=== PATIENT | female | born 1995 | race Caucasian/White ===

== ENCOUNTER 2020-12-10 09:48 | Inpatient (IN) | payer BC ==
[~2020-12-10] VITALS: Ht 149.9 cm; Wt 82.7 kg
[~2020-12-10 09:48] MED LIST: IBUP-1222 PO; OXYC1TAB12 PO
[2020-12-10] MEDS ORDERED: LACTATED RINGERS 1,000 ML IVBOLUS ONE (10:00)
[2020-12-10] MEDS ORDERED: METOCLOPRAMIDE 5 MG/ML, 2ML IV ONE (10:00)
[2020-12-10] MEDS ORDERED: SODIUM CITRATE/CITRIC ACID 30 ML UDC PO ONE (10:00)
[2020-12-10 10:25] VITALS: BP 112/78
[2020-12-10] MEDS ORDERED: PREN1TAB60 PO (10:25)
[2020-12-10] MEDS ORDERED: PLEASE ENTER HEIGHT AND WEIGHT MC SCH (10:30)
[2020-12-10 10:38] LABS: BASOPHILS % (AUTO) 0 % (0-1); EOSINOPHILS % (AUTO) 1 % (1-7); LYMPHOCYTES % (AUTO) 20 % (22-44); MEAN PLATELET VOLUME 9.6 fL (7.4-10.4); MONOCYTES % (AUTO) 7 % (2-9); NEUTROPHILS % (AUTO) 71 % (42-75); PLATELET COUNT 211 x10^3/uL (130-400); RED BLOOD COUNT 3.81 x10^6/uL (3.82-5.3); RED CELL DISTRIBUTION WIDTH 13.4 % (9.6-15.2)
[2020-12-10] MEDS ORDERED: SODIUM CITRATE/CITRIC ACID 15 ML UDC ONE (10:38)
[2020-12-10] MEDS ORDERED: NEWBORN KIT ONE (10:59)
[2020-12-10] MEDS ORDERED: CEFAZOLIN 1,000 MG ONE (11:16)
[2020-12-10] MEDS ORDERED: ONDANSETRON 2MG/ML, 2ML ONE (11:16)
[2020-12-10] MEDS ORDERED: OXYTOCIN 10 UNITS/ML, 1ML ONE (11:16)
[2020-12-10] MEDS ORDERED: FENTANYL PF 100 MCG/2ML ONE (11:16)
[2020-12-10] MEDS ORDERED: HYDROmorphone 2 MG/ML, 1ML ONE (11:16)
[2020-12-10] MEDS ORDERED: PHENYLEPHRINE 10 MG/ML ONE (12:32)
[2020-12-10] MEDS ORDERED: KETOROLAC 30 MG/1 ML ONE (12:41)
[2020-12-10] MEDS: LACTATED RINGERS 1,000 ML IV SCH ×4 (13:00→23:00)
[2020-12-10] MEDS ORDERED: MORPHINE SULFATE 4 MG/ML, 1ML IVPush PRN (13:00)
[2020-12-10] MEDS ORDERED: MISOPROSTOL 200 MCG TABLET PR PRN (13:00)
[2020-12-10] MEDS: KETOROLAC 30 MG/1 ML IV SCH ×2 (13:00→19:02)
[2020-12-10] MEDS ORDERED: ONDANSETRON 2MG/ML, 2ML IV PRN (13:00)
[2020-12-10] MEDS ORDERED: OXYcodone/APAP 5/325MG TABLET PO PRN (13:00)
[2020-12-10] MEDS: OXYTOCIN 30U/ 0.9% NaCL 500ML 500 ML IV SCH ×2 (13:30→23:00)
[2020-12-10] MEDS ORDERED: OXYcodone 5 MG/5 ML ORAL.SOL UDC ONE (14:13)
[2020-12-10] MEDS ORDERED: OXYcodone 5 MG/5 ML ORAL.SOL UDC PO PRN (14:30)
[2020-12-10 15:00] VITALS: BP 117/78
[2020-12-10] MEDS: DOCUSATE 100 MG CAPSULE PO PRN (19:02)
[2020-12-10] MEDS: OXYcodone IR 5MG TABLET PO PRN (19:03)
[2020-12-10 20:50] VITALS: BP 114/70
[2020-12-10 21:03] LABS: BASOPHILS % (AUTO) 1 % (0-1); EOSINOPHILS % (AUTO) 0 % (1-7); LYMPHOCYTES % (AUTO) 20 % (22-44); MEAN CORPUSCULAR HEMOGLOBIN 30.6 pg (27.0-34.8); MEAN CORPUSCULAR HGB CONC 34.5 g/dL (32.4-35.8); MEAN PLATELET VOLUME 9.5 fL (7.4-10.4); MONOCYTES % (AUTO) 6 % (2-9); NEUTROPHILS % (AUTO) 73 % (42-75); PLATELET COUNT 203 x10^3/uL (130-400); RED BLOOD COUNT 3.85 x10^6/uL (3.82-5.3); RED CELL DISTRIBUTION WIDTH 13.2 % (9.6-15.2)
[2020-12-10] MEDS: ACETAMINOPHEN 325 MG TABLET PO PRN (21:27)
[2020-12-11] VITALS: BP 102/70
[2020-12-11] MEDS: SIMETHICONE 80 MG CHEW TAB PO PRN ×3 (00:39→14:47)
[2020-12-11] MEDS: KETOROLAC 30 MG/1 ML IV SCH ×4 (00:40→18:49)
[2020-12-11] MEDS: ACETAMINOPHEN 325 MG TABLET PO PRN ×6 (02:10→23:02)
[2020-12-11] MEDS: OXYcodone IR 5MG TABLET PO PRN ×6 (02:10→23:03)
[2020-12-11] MEDS: LACTATED RINGERS 1,000 ML IV SCH ×3 (04:40→21:00)
[2020-12-11 05:57] VITALS: BP 107/71
[2020-12-11 08:10] VITALS: BP 108/71
[2020-12-11] MEDS: PRENATAL VIT/IRON/FA 1 EACH TABLET PO SCH (08:56)
[2020-12-11] MEDS: DOCUSATE 100 MG CAPSULE PO PRN ×2 (08:56→18:48)
[2020-12-11] MEDS: OXYTOCIN 30U/ 0.9% NaCL 500ML 500 ML IV SCH (19:00)
[2020-12-11 19:35] VITALS: BP 111/70
[2020-12-12] MEDS: KETOROLAC 30 MG/1 ML IV SCH ×2 (01:02→07:20)
[2020-12-12] MEDS: OXYcodone IR 5MG TABLET PO PRN ×5 (03:25→20:56)
[2020-12-12] MEDS: ACETAMINOPHEN 325 MG TABLET PO PRN ×5 (03:25→20:55)
[2020-12-12] MEDS: LACTATED RINGERS 1,000 ML IV SCH ×5 (05:00→21:00)
[2020-12-12] MEDS: OXYTOCIN 30U/ 0.9% NaCL 500ML 500 ML IV SCH ×2 (05:00→15:00)
[2020-12-12 07:15] VITALS: BP 110/74
[2020-12-12] MEDS: PRENATAL VIT/IRON/FA 1 EACH TABLET PO SCH (07:20)
[2020-12-12] MEDS: DOCUSATE 100 MG CAPSULE PO PRN ×2 (07:20→20:55)
[2020-12-12] MEDS: IBUPROFEN 600 MG TABLET PO PRN ×2 (14:00→20:55)
[2020-12-12 21:20] VITALS: BP 128/85
[2020-12-13] MEDS: OXYTOCIN 30U/ 0.9% NaCL 500ML 500 ML IV SCH (01:00)
[2020-12-13] MEDS: LACTATED RINGERS 1,000 ML IV SCH ×2 (01:00→05:00)
[2020-12-13] MEDS: ACETAMINOPHEN 325 MG TABLET PO PRN ×3 (01:37→11:29)
[2020-12-13] MEDS: OXYcodone IR 5MG TABLET PO PRN ×3 (01:37→11:30)
[2020-12-13] MEDS: IBUPROFEN 600 MG TABLET PO PRN ×2 (05:37→11:29)
[2020-12-13] MEDS ORDERED: IBUP-1222 PO (06:08)
[2020-12-13] MEDS ORDERED: OXYC1TAB12 PO (06:08)
[2020-12-13 07:20] VITALS: BP 109/70
[2020-12-13] MEDS ORDERED: MEASLES,MUMPS&RUBELLA VACC/PF 0.5 ML SQ-VACC ONE (07:30)
[2020-12-13] MEDS: DOCUSATE 100 MG CAPSULE PO PRN (11:29)
[2020-12-13] MEDS: PRENATAL VIT/IRON/FA 1 EACH TABLET PO SCH (11:29)
== END 2020-12-13 16:32 | disposition home or self-care (01) | DRG 785 ==
LOC: LDIP 09:48 → 2NW 14:50
PROVIDERS: ADMIT Obstetrics & Gynecology; ATTEND Obstetrics & Gynecology
PROC: 0UB70ZZ Excision of Bilateral Fallopian Tubes, Open Approach (ICD-10-PCS; principal; 2020-12-10)
PROC: 10D00Z1 Extraction of Products of Conception, Low, Open Approach (ICD-10-PCS; 2020-12-10)
DX: O69.81X0 Labor and delivery complicated by cord around neck, without compression, not applicable or unspecified (principal); Z30.2 Encounter for sterilization; O34.211 Maternal care for low transverse scar from previous cesarean delivery; Z20.822 Contact with and (suspected) exposure to COVID-19; Z37.0 Single live birth; Z3A.39 39 weeks gestation of pregnancy
CPT/HCPCS: 36415; 85025; 86592; 86850; 86900; 88302; G0378; J0690; J1170; J1885; J2405; J3010; U0005; J2270; J2370; J2590; J2765; J7120; U0003